=== PATIENT | female | born 1970 | race Caucasian/White ===

== ENCOUNTER 2018-02-13 11:59 | Emergency (ER) | payer OTHER ==
[2018-02-13 12:26] LABS: ADD MAN DIFF? NO
[2018-02-13 12:32] LABS: WHITE BLOOD COUNT 7.6 10^3/ul (4.8-10.8)
[2018-02-13 12:32] LABS: ABNORMAL IP MESSAGE 1; BASOPHILS % 0.3 % (0.0-2.0); EOSINOPHILS # 0.2 10^3/ul (0.0-0.5); EOSINOPHILS % 2.2 % (0.0-7.0); HEMATOCRIT 46.4 % (37.0-47.0); HEMOGLOBIN 15.1 g/dl (12.0-16.0); LYMPHOCYTES # 1.8 10^3/ul (0.8-2.9); LYMPHOCYTES % 23.3 % (15.0-51.0); MEAN CORPUSCULAR HEMOGLOBIN 28.8 pg (29.0-33.0); MEAN CORPUSCULAR HGB CONC 32.5 g/dl (32.0-37.0); MEAN CORPUSCULAR VOLUME 88.5 fl (82.0-101.0); MEAN PLATELET VOLUME 13.9 fl (7.4-10.4); MONOCYTE # 0.5 10^3/ul (0.3-0.9); MONOCYTES % 6.2 % (0.0-11.0); NEUTROPHIL # 5.2 10^3/ul (1.6-7.5); NEUTROPHILS % 67.6 % (39.0-77.0); PLATELET COUNT 83 10^3/UL (140-415); RED BLOOD COUNT 5.24 10^6/ul (4.20-5.40); RED CELL DISTRIBUTION WIDTH 12.6 % (11.5-14.5)
[2018-02-13 12:33] LABS: POSITIVE DIFF @See below
[2018-02-13 12:35] LABS: PROTIME 12.2 Sec (11.9-14.9)
[2018-02-13] MEDS: LORAZEPAM 2 MG INJ IV (12:47)
[2018-02-13] MEDS: SOD CHLORIDE 0.9% 1,000 ML IV (12:47)
[2018-02-13 12:49] LABS: ANION GAP 14 (8-16); BLOOD UREA NITROGEN 12 mg/dl (7-20); CALCIUM 9.7 mg/dl (8.4-10.2); CARBON DIOXIDE 25 mmol/L (21-31); CHLORIDE 107 mmol/L (97-110); CREATININE 0.63 mg/dl (0.44-1.00); GLUCOSE 119 mg/dl (70-220); POTASSIUM 4.1 mmol/L (3.5-5.1); SODIUM 142 mmol/L (135-144)
[2018-02-13 13:01] LABS: PARTIAL THROMBOPLASTIN TIME 37.7 Sec (25.0-35.0); TROPONIN-I < 0.012 ng/ml (0.000-0.120)
[2018-02-13 13:06] LABS: FREE T4 (FREE THYROXINE) 1.05 ng/dl (0.64-1.79)
== END 2018-02-13 15:11 | disposition home or self-care (01) ==
LOC: E/R 11:59
DX: D69.6 Thrombocytopenia, unspecified (principal); R51 Headache; R53.1 Weakness; R40.2142 Coma scale, eyes open, spontaneous, at arrival to emergency department; R40.2252 Coma scale, best verbal response, oriented, at arrival to emergency department; R40.2362 Coma scale, best motor response, obeys commands, at arrival to emergency department
CPT/HCPCS: 36415; 70450; 80048; 81025; 84439; 84443; 84484; 85025; 85610; 85730; 93005; 96374; 99285-25